=== PATIENT | male | born 1945 | race African-American/Black ===

== ENCOUNTER 2017-08-14 05:33 | Day surgery (SDC) | payer MEDICARE, BC ==
[~2017-08-14] VITALS: Ht 180.3 cm; Wt 94.8 kg
[~2017-08-14 05:33] MED LIST: CLONIDINE PO; FUROSEMIDE PO; HYDR1TAB12 PO; RENAGEL PO
[2017-08-14] MEDS ORDERED: LACTATED RINGERS 1,000 ML IV SCH (06:19)
[2017-08-14] MEDS ORDERED: DORZ10DR7 TP (06:26)
[2017-08-14] MEDS ORDERED: AMLO5TAB2 PO (06:26)
[2017-08-14] MEDS ORDERED: TRAV5DRO TP (06:26)
[2017-08-14] MEDS ORDERED: CARV3.122 PO (06:26)
[2017-08-14] MEDS ORDERED: PANT40TA5 PO (06:26)
[2017-08-14] MEDS ORDERED: FURO20TA3 PO (06:26)
[2017-08-14] MEDS ORDERED: SEVE800T7 PO (06:26)
[2017-08-14] MEDS ORDERED: VALS40TA2 PO (06:26)
[2017-08-14] MEDS ORDERED: CLON0.1T PO (06:27)
[2017-08-14] MEDS ORDERED: SODIUM CHLORIDE 0.9% 1,000 ML IV SCH (06:57)
[2017-08-14 06:59] VITALS: BP 165/81
[2017-08-14 07:11] LABS: ALANINE AMINOTRANSFERASE 13 U/L (12-78); ANION GAP 8 mmol/L (5-15); CALCIUM 9.2 mg/dL (8.5-10.1); CHLORIDE 100 mmol/L (98-107); CREATININE 8.39 mg/dL (0.7-1.3)
[2017-08-14 07:13] LABS: ALKALINE PHOSPHATASE 72 U/L (45-117); BILIRUBIN,TOTAL 0.4 mg/dL (0.2-1.0); TOTAL PROTEIN 7.3 g/dL (6.4-8.2)
[2017-08-14] MEDS ORDERED: FENTANYL PF 100 MCG/2ML ONE (07:27)
[2017-08-14] MEDS ORDERED: DEXAMETHASONE 4 MG/ML, 1ML ONE (07:42)
[2017-08-14] MEDS ORDERED: PROPOFOL 10 MG/ML, 20ML ONE (07:57)
[2017-08-14] MEDS ORDERED: SUCCINYLCHOLINE 20 MG/ML, 10ML ONE (07:57)
[2017-08-14] MEDS ORDERED: OXYcodone 5 MG/5 ML ORAL.SOL UDC PO PRN (08:00)
[2017-08-14] MEDS ORDERED: ONDANSETRON ODT 8 MG PO PRN (08:00)
[2017-08-14] MEDS ORDERED: hydrALAzine 20 MG/ML, 1ML IV PRN (08:00)
[2017-08-14] MEDS ORDERED: FENTANYL PF 100 MCG/2ML IV PRN (08:00)
[2017-08-14] MEDS ORDERED: ACETAMINOPHEN 325 MG TABLET PO PRN (08:00)
[2017-08-14] MEDS ORDERED: LABETALOL 5MG/ML, 20ML IV PRN (08:00)
[2017-08-14] MEDS ORDERED: ALBUTEROL/IPRATROPIUM 2.5MG/0.5MG, 3 ML NPPB PRN (08:00)
== END 2017-08-14 10:30 ==
LOC: OUT 05:33
PROVIDERS: ATTEND Internal Medicine Geriatric Medicine
DX: C15.4 Malignant neoplasm of middle third of esophagus (principal); K31.89 Other diseases of stomach and duodenum; I12.0 Hypertensive chronic kidney disease with stage 5 chronic kidney disease or end stage renal disease; N18.6 End stage renal disease
CPT/HCPCS: 36415; 43239; 43242; 80053; 88172; 88173; 88305; 93005; J0330; J1100; J2704; J3010; J7030

== ENCOUNTER → 2017-10-11 | Outpatient (CLI) | payer MEDICARE, BC ==
[~2017-10-11] MED LIST changes: +AMLO5TAB2 PO; +CARV3.122 PO; +CLON0.1T PO; +DORZ10DR7 TP; +FURO20TA3 PO; +PANT40TA5 PO; +SEVE800T7 PO; +TRAV5DRO TP; +VALS40TA2 PO
== END | disposition home or self-care (01) ==
LOC: PETCFH 07:33
PROVIDERS: ATTEND Internal Medicine Hematology & Oncology
DX: C77.1 Secondary and unspecified malignant neoplasm of intrathoracic lymph nodes (principal); C79.51 Secondary malignant neoplasm of bone; C16.9 Malignant neoplasm of stomach, unspecified; C15.5 Malignant neoplasm of lower third of esophagus; J84.10 Pulmonary fibrosis, unspecified
CPT/HCPCS: 78815; A9552